=== PATIENT | female | born 1970 | race Caucasian/White ===

== ENCOUNTER 2017-02-21 17:16 | Emergency (ER) | payer OTHER ==
[~2017-02-21] VITALS: Ht 165.1 cm; Wt 119.0 kg
[2017-02-21] MEDS ORDERED: HYDROmorphone 1 MG/ML, 1ML ONE (17:53)
[2017-02-21] MEDS ORDERED: HYDROmorphone 1 MG/ML, 1ML IM ONE (18:00)
[2017-02-21] MEDS ORDERED: IBUPROFEN 200 MG TABLET ONE (18:08)
[2017-02-21] MEDS ORDERED: IBUPROFEN 200 MG TABLET PO ONE (18:30)
[2017-02-21 19:05] VITALS: BP 135/85
== END 2017-02-21 19:07 | disposition home or self-care (01) ==
LOC: ED 19:01
DX: M25.462 Effusion, left knee (principal); G89.11 Acute pain due to trauma
CPT/HCPCS: 73564; 96372; 99284; J1170